=== PATIENT | male | born 1965 | race Caucasian/White ===

== ENCOUNTER 2016-08-10 07:50 | Emergency (ER) | payer BC ==
[2016-08-10 08:12] VITALS: BP 148/91
--- NOTE | 2016-08-10 08:34 | RAD ---
INDICATION: Pain ring finger right hand-no trauma COMPARISON: None TECHNIQUE: AP, lateral, and oblique views were obtained. FINDINGS: The bony structures, joint spaces, and soft tissues are normal for age. IMPRESSION: NEGATIVE EXAMINATION.
--- NOTE | 2016-08-10 10:12 | UC ---
Michael Roberts Matthew, [facility] on 08/10/16 at 0852 . Hand/Wrist HPI - HPI Summary HPI Summary: Nurse's Note: 4th finger complaint x 5 days, patient woke up and the finger "felt stiff". Pain worsens with bending the finger. No known mechanism of injury but patient is concerned, "that my bones might be injured". 8/10 sharp intermittent pain with "bending the finger,". Denies any swelling or bruising in the finger. Note: VItal sign stable, pulse oxygen 93%, 8/10 pain, alcohol, never smoked, ganglion cyst removed on the left In Room Note: A 51 y/o male presents to [facility] with right 4th finger pain for the past 5 days. The pain is rated 8/10 in severity and descried as sharp. The pain worsens with flexion of the finger. 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 He denies swelling, ecchymosis, nausea, vomiting, and diarrhea. The patient last saw his PCP a year and half ago. No hospitalization. He's also c/o of diffuse cysts. - History Of Current Complaint Chief Complaint: UCUpperExtremity Stated Complaint: FINGER COMPLAINT Time Seen by Provider: 08/10/16 08:16 Hx Obtained From: Patient ?: No Mechanism Of Injury: Unknown Onset/Duration: Lasting Days, Still Present Severity Initially: Moderate Severity Currently: Moderate Pain Intensity: 8 Pain Scale Used: 0-10 Numeric Aggravating Factor(s): Flexion Associated Signs And Symptoms: Negative: Swelling, Bruising - Allergies/Home Medications Allergies/Adverse Reactions: Allergies Allergy/AdvReac Type Severity Reaction Status Date / Time Penicillins Allergy Intermediate Rash Verified 02/04/14 08:28 PMH/Surg Hx/FS Hx/Imm Hx Endocrine History Of: Denies: Diabetes, Thyroid Disease Cardiovascular History Of: Denies: Cardiac Disorders, Hypertension, Pacemaker/ICD Respiratory History Of: Denies: COPD, Asthma GI/ History Of: Denies: Gastroesophageal Reflux, Renal Disease Neurological History Of: Denies: CVA, Dementia, Seizures Other History Of: Negative For: Anticoagulant Therapy - Surgical History Surgical History: Yes Surgery Procedure, Year, and Place: T&A. 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 Smoking Status (MU): Never Smoked Tobacco Type: Cigarettes, eCigarettes Have You Smoked in the Last Year: No When Did the Patient Quit Smoking/Using Tobacco: 8 months ago Review of Systems Constitutional: Negative Skin: Negative Eyes: Negative, Diplopia Respiratory: Negative Cardiovascular: Negative Gastrointestinal: Negative Genitourinary: Negative Motor: Negative Neurovascular: Negative Musculoskeletal: Myalgia - right ring finger pain Neurological: Negative Psychological: Negative All Other Systems Reviewed And Are Negative: Yes Physical Exam Triage Information Reviewed: Yes Appearance: Well-Appearing, No Pain Distress, Well-Nourished Vital Signs: Initial Vital Signs Temp 96.5 F 08/10/16 07:59 Pulse 60 08/10/16 07:59 Resp 16 08/10/16 07:59 BP 148/91 08/10/16 07:59 Pulse Ox 93 08/10/16 07:59 Vital Signs Reviewed: Yes Eyes: Positive: Conjunctiva Clear ENT: Positive: Hearing grossly normal. Negative: Muffled/hoarse voice Neck: Positive: Supple, Nontender Respiratory: Positive: Chest non-tender, Lungs clear, Normal breath sounds, No respiratory distress Cardiovascular: Positive: RRR, No Murmur Abdomen Description: Positive: Nontender, Soft Bowel Sounds: Positive: Present Musculoskeletal: Positive: Other: - Full ROM at the right elbow and wrist; No snuffbox tenderness; No obvious inflammation; Flexor digitorum profundas is intact; Flexor digitorum superficialis is intact; MILD TENDERNESS OVER THE METACARPOPHALANGEAL JOINT VOLAR ASPECT IN THE RIGHT RING FINGER; RESTRICTED FLEXION; No arthritis; No signs of infection; no signs of swelling Neurological: Positive: Alert Psychological: Positive: Age Appropriate Behavior Skin Exam: Normal Skin: Negative: rashes Diagnostics - Radiology Hand XR Xray Interpretation: No Acute Changes - IMPRESSION: NEGATIVE EXAMINATION. Radiology Interpretation Completed By: Radiologist Hand/Wrist Course/Dx - Differential Dx/Diagnosis Provider Diagnoses: Overuse syndrome right ring finger Discharge - Discharge Plan Condition: Stable Disposition: HOME Patient Education Materials: Finger Sprain (ED), Tendinitis (ED) Referrals: Luca William DO [Primary Care Provider] - Additional Instructions: WE DISCUSSED: You have soft tissue injury to the 3rd finger of your right hand from overuse. This could be a ligament sprain or a tendonitis. It's a problem with repetitive flexing of the finger. Try nimco taping. Warm moist heat in the morning. Passive movement to keep the joint flexible. Ice after work or for discomfort. Over time this will get better. A simple guide is that if it hurts, don't do it , if at all possible. Recheck at any time for increased pain, redness, swelling or disability. The documentation as recorded by the Michael reed Matthew accurately reflects the service I personally performed and the decisions made by me, Praful Sultana MD.
== END 2016-08-10 10:10 | disposition home or self-care (01) ==
LOC: UCEAST 07:50
DX: M70.841 Other soft tissue disorders related to use, overuse and pressure, right hand (principal); Y93.9 Activity, unspecified; R03.0 Elevated blood-pressure reading, without diagnosis of hypertension; Z88.0 Allergy status to penicillin; Z87.891 Personal history of nicotine dependence
CPT/HCPCS: 99211; G0463

== ENCOUNTER 2017-07-19 10:33 | Emergency (ER) | payer BC ==
[2017-07-19 11:30] LABS: ABS Basophils 0 10^3/ul (0-0.2); ABS Eosinophils 0.1 10^3/ul (0-0.6); ABS Lymphocytes 1.7 10^3/ul (1.0-4.8); ABS Monocytes 0.5 10^3/ul (0-0.8); ABS Neutrophils 2.4 10^3/ul (1.5-7.7); ABS Nucleated RBC 0 10^3/ul; Eosinophil % 2.2 % (0-6); Hematocrit 49 % (42-52); Hemoglobin 16.8 g/dl (14.0-18.0); Lymphocyte % 35.5 % (25-47); Mean Corpuscular HGB Conc 34 g/dl (31-36); Mean Corpuscular Hemoglobin 29 pg (27-31); Mean Corpuscular Volume 84 fL (80-94); Mean Platelet Volume 8 um3 (7.4-10.4); Nucleated Red Blood Cells % 0.5; Platelet Count 263 10^3/ul (150-450); Red Blood Count 5.85 10^6/ul (4.0-5.4); Red Cell Distribution Width 15 % (10.5-15); White Blood Count 4.7 10^3/ul (3.5-10.8)
[2017-07-19 11:41] LABS: Urine Appearance Clear; Urine Blood Negative (Negative); Urine Color Straw; Urine Ketones 1+ (Negative); Urine Protein Negative (Negative); Urine Specific Gravity 1.005 (1.010-1.030); Urine Urobilinogen Negative (Negative)
[2017-07-19 11:45] LABS: INR 0.82 (0.77-1.02)
[2017-07-19 11:48] LABS: EGFR Non-African American 92.1 (>60)
--- NOTE | 2017-07-19 12:17 | RAD ---
INDICATION: Episode of dizziness, partial visual loss and headache 2 days earlier COMPARISON: None. TECHNIQUE: Contiguous axial sections of the brain were obtained from the skull base to the vertex without contrast. FINDINGS: The ventricles, cisterns and sulci are within normal limits. The montalvo-white matter differentiation is adequately maintained and there is no sulcal effacement. No significant focal abnormality or mass effect is present. There is no evidence for intracranial hemorrhage. No significant focal osseous abnormality is present. There is fluid in the dependent portion of the right maxillary sinus. The remaining visualized paranasal sinuses are well-aerated. The mastoid air cells are well aerated bilaterally. IMPRESSION: Right maxillary sinusitis in this otherwise normal-appearing brain CT.
[2017-07-19] MEDS ORDERED: Iohexol 350* (CONTRAST) 500 ML MDV IV ONE (12:55)
--- NOTE | 2017-07-19 13:46 | RAD ---
CPT II: CPT II Codes: 3100F INDICATION: Slurred speech 2 days earlier COMPARISON: Same day noncontrast CT of the brain TECHNIQUE: A CT angiogram of the head and neck was performed with 80 cc of Omnipaque 350. Contiguous axial sections were obtained from the thoracic inlet through the blackfeet of Elise. Images were reconstructed in the sagittal, coronal planes and in a 3-D volume rendered format. The distal cervical internal carotid artery diameter is used as the denominater for stenosis measurement. CTA NECK: The common and internal carotid arteries are patent without hemodynamically significant stenosis. Right: Below the carotid bifurcation the common carotid artery measures 6 mm in diameter. There is very mild partially calcified atherosclerosis at the right carotid bulb and the internal carotid artery measures 6 mm in short axis diameter yielding 0% degree stenosis. Left: Just below the bifurcation the common carotid artery measures 6 mm in diameter. There is no significant atherosclerosis at the left carotid bulb and the left internal carotid artery measures 6 mm in short axis diameter. The right vertebral artery is diminutive relative to the left. At the confluence of the intracranial vertebral arteries below the basilar tip the right vertebral artery becomes extremely diminutive (axial image 172) but appears to remain patent up to the confluence with the basilar artery. CTA of the brain: The internal carotid, anterior and middle cerebral arteries appear are patent without high grade stenosis or occlusion. The vertebral, basilar and posterior cerebral arteries appear patent without high grade stenosis or occlusion. The right posterior communicating artery appears to be absent causing the blackfeet of Elise to be incomplete. No focal luminal filling defect, aneurysm or vascular malformation is seen. NON-ARTERIAL FINDINGS: Mild degenerative changes of the cervical spine include loss of intervertebral disc height. IMPRESSION: Normal CT angiography of the head and neck.
[2017-07-19] MEDS ORDERED: Aspirin EC TAB* 325 MG PO ONE (14:45)
[2017-07-19 15:05] VITALS: BP 144/95
--- NOTE | 2017-07-19 21:06 | ED ---
Chaitanya Roberts Nikita, scribed for Caleb Smalls MD on 07/19/17 at 1059 . Neurological HPI - HPI Summary HPI Summary: This patient is a 52 year old M presenting to ED with a chief complaint of dizziness since 2 days ago in the afternoon. The CC is described as lasting 10 minutes. The patient rates the pain 0/10 in severity. Symptoms aggravated by nothing. Symptoms alleviated by spontaneous resolution. Patient reports light- headedness, partial loss of vision (doesnt remember which eye), DIANE, and slurred speech. Pt denies LOC, numbness, tingling, and weakness in the extremities. - History of Current Complaint Chief Complaint: EDNeurologicalDeficit Stated Complaint: POSSIBLE STROKE-FRIDAY Time Seen by Provider: 07/19/17 10:46 Hx Obtained From: Patient Onset/Duration: Sudden Onset, Started days ago, Resolved Timing: Intermittent Episodes Lasting: - one episode lasting 10 minutes Current Severity: None Pain Intensity: 0 Pain Scale Used: 0-10 Numeric Aggravating: Nothing Alleviating: Spontanious Resolution Associated Signs and Symptoms: Positive: Headache - Patient reports light- headedness, partial loss of vision (doesnt remember which eye), DIANE, and slurred speech. Pt denies LOC, numbness, tingling, and weakness in the extremities. - Allergy/Home Medications Allergies/Adverse Reactions: Allergies Allergy/AdvReac Type Severity Reaction Status Date / Time MS Penicillins [Penicillins] Allergy Intermediate Rash Verified 02/04/14 08:28 PMH/Surg Hx/FS Hx/Imm Hx Endocrine/Hematology History: Denies: Hx Anticoagulant Therapy, Hx Diabetes, Hx Thyroid Disease Cardiovascular History: Denies: Hx Hypertension, Hx Pacemaker/ICD Respiratory History: Reports: Hx Sleep Apnea - evaluation for 01/2014 Denies: Hx Asthma, Hx Chronic Obstructive Pulmonary Disease (COPD) History: Denies: Hx Renal Disease Musculoskeletal History: Reports: Other Musculoskeletal History - jaw pain Sensory History: Reports: Hx Hearing Problem - loud noise exposure w/o ear protection Neurological History: Denies: Hx Dementia, Hx Seizures Psychiatric History: Denies: Hx Substance Abuse - Surgical History Surgery Procedure, Year, and Place: T&A. 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 Positive: Headache, Slurred Speech All Other Systems Reviewed And Are Negative: Yes Physical Exam - Summary Physical Exam Summary: VITAL SIGNS: Reviewed. GENERAL: ~Patient is a well-developed and nourished MALE who is lying comfortable in the stretcher. ~Patient is not in any acute respiratory distress. HEAD AND FACE: No signs of trauma. ~No ecchymosis, hematomas or skull depressions. No sinus tenderness. EYES: PERRLA, EOMI x 2, No injected conjunctiva, no nystagmus. EARS: Hearing grossly intact. Ear canals and tympanic membranes are within normal limits. MOUTH: Oropharynx within normal limits. NECK: Supple, trachea is midline, no adenopathy, no JVD, no carotid bruit, no c- spine tenderness, neck with full ROM. CHEST: Symmetric, no tenderness at palpation LUNGS: Clear to auscultation bilaterally. No wheezing or crackles. CVS: Regular rate and rhythm, S1 and S2 present, no murmurs or gallops appreciated. ABDOMEN: Soft, non-tender. No signs of distention. No rebound no guarding, and no masses palpated. Bowel sounds are normal. EXTREMITIES: FROM in all major joints, no edema, no cyanosis or clubbing. NEURO: Alert and oriented x 3. No acute neurological deficits. Speech is normal and follows commands. SKIN: Dry and warm GCS: 15 Triage Information Reviewed: Yes Vital Signs On Initial Exam: Initial Vitals Temp Pulse Resp BP Pulse Ox 96.8 F 71 17 160/100 99 07/19/17 10:36 07/19/17 10:36 07/19/17 10:36 07/19/17 10:36 07/19/17 10:36 Vital Signs Reviewed: Yes Diagnostics - Vital Signs Vital Signs Temp Pulse Resp BP Pulse Ox 07/19/17 10:36 96.8 F 71 17 160/100 99 - Laboratory Result Diagrams: 07/19/17 11:10 07/19/17 11:10 Lab Statement: Any lab studies that have been ordered have been reviewed, and results considered in the medical decision making process. - CT Brain CT CT Interpretation Completed By: Radiologist - Right maxillary sinusitis in this otherwise normal-appearing brain CT. ED physician has reviewed this radiology report. Head CTA CT Interpretation Completed By: Radiologist - Normal CT angiography of the head and neck. ED physician has reviewed this radiology report. - EKG 1101 Cardiac Rate: NL EKG Rhythm: Sinus Rhythm - 69 bpm EKG Interpretation: No ST elevations Course/Dx - Course Assessment/Plan: This patient is a 52 year old M presenting to ED with a chief complaint of dizziness since 2 days ago in the afternoon. Blood work is without significant abnormalities. Brain CT right maxillary sinusitis in this otherwise normal-appearing brain CT. Discussed with Maverick who recommended a CTA. CTA reveals normal CT angiography of the head and neck. After CTA, Dr. Temple spoke to the patient. After assessment, he requested for the patient to be D/C home with f/u at his office on Friday. The patient is hemodynamically stable, alert and oriented x3. - Differential Dx Differential Diagnoses Neuro: Positive: Transient Ischemic Attack - Diagnoses Provider Diagnoses: TIA (transient ischemic attack) - Physician Notifications Discussed Care Of Patient With: Joon Temple Time Discussed With Above Provider: 12:41 Instructed by Provider To: Other - Consulted Dr. Temple who will see the pt in the ED. Discharge - Discharge Plan Condition: Stable Disposition: HOME Patient Education Materials: Transient Ischemic Attack (ED) Referrals: Joon Temple MD [Medical Doctor] - 3 Days Additional Instructions: RETURN TO THE ED FOR ANY NEW OR WORSENING SYMPTOMS. The documentation as recorded by the Chaitanya reed Nikita accurately reflects the service I personally performed and the decisions made by , Caleb Smalls MD.
--- NOTE | 2017-07-19 21:18 | CONS ---
CC: [facility] NEUROLOGY CONSULTATION: DATE OF CONSULT: 07/19/17 LOCATION: Emergency room. REFERRING PHYSICIAN: Dr. Smalls. CHIEF COMPLAINT: Episode of lightheadedness, visual change, and difficulty speaking. 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 He started to feel very fuzzy and lightheaded "like if I stood up too quick." His vision became blotchy and it was difficult to see. Initially he thought it was perhaps he had looked into a bright work light too much. He sat down and continued to feel "fuzzy" and had distortions of his vision. He thinks it was in both eyes but he is not sure. He decided to call a contract supplier and as he was starting to speak, he realized he could not get out the words he was trying to. He says he knew what he wanted to say, but he could not get the words out. He was able to get some words out and he felt that they were slurred. He continued to try to speak to the supplier for about 3 minutes and realized he was not able to communicate effectively and so signed off. He then spoke with a co-worker who looked at him and realized that something was not right. He was able to speak to the coworker with some difficulty getting words out, but it was better than when he was on the phone and it resolved. After about 10 minutes, he felt back to normal. The visual aspect lasted about 3 minutes. He did not notice any numbness nor weakness of his limbs. His co- worker did not notice any asymmetry of his face. He did not have any headache. He did not seek medical attention, went home and then while reading about symptoms of transient ischemic attacks and discussing things with friends, he decided to come to the emergency room today. He felt well since this past without recurrent episodes. There is no prior history of transient ischemic attack or stroke. He does not see physicians regularly and has not had blood work done in many years. He does recall blood work done over 5 years ago, being told his cholesterol was elevated. Other than that he does not seek medical help other than when he is sick. He did have pneumonia and did see a physician in [facility] in June and was treated with antibiotics. He does not know if he has ever had problems with hypertension or diabetes, but he has never been diagnosed as such. He is a nonsmoker. He does not take any medications on a regular basis including aspirin. FAMILY HISTORY: Notable for hyperlipidemia and strokes in both of his parents. His father of coronary artery disease. SOCIAL HISTORY: He has a son who was recently diagnosed with hyperlipidemia. He does not smoke, but he did smoke a little bit when he was in his 20s. He drinks very little to no alcohol. REVIEW OF SYSTEMS: Negative for headaches, seizures, cardiac, pulmonary, renal , GI, , psychiatric, or endocrine disorders. He has lost weight this past year intentionally. PHYSICAL EXAM: He is well developed and well nourished. Temperature 96.8 temporally, blood pressure 122/77, heart rate in the 70s and sinus on the monitor. Respiratory rate is 20, oxygen saturation 95% on room air. Heart is in a regular rate and rhythm without murmurs. Carotid pulses are symmetrical and there are no cervical bruits. Lungs are clear bilaterally. Distal pulses are present and extremities are warm. There is no pedal edema. On neurologic exam, pupils, fundi, and eye movements are normal. Visual sánchez are full to confrontation. There is no ptosis. Facial musculature is symmetric. Facial sensation to light touch and temperature are symmetric. Palate and tongue appear normal, tongue protrudes in the midline and palate rises symmetrically. There is no dysarthria. Hearing is intact bilaterally. Neck strength is normal. Motor exam reveals normal muscle bulk, tone, and strength proximally and distally in upper and lower extremities. There is no pronator drift. There is no rest, sustention or action tremor. Ytjsbo-or-pais maneuver is normal. Yjrc-xs-kitc maneuver is normal. Finger taps are normal in the hands. Sensory exam in the limbs is intact to vibration and light touch. Also to temperature sensation. Reflexes are intact and symmetric in upper and lower extremities. Plantar responses are flexor bilaterally. Limited gait testing is normal. Romberg sign is absent. He is alert and oriented and a very detailed historian. His attention and concentration seem to wander to different medical topics at times. Fund of knowledge is adequate. His language is fluent. Remote and recent memory are intact. DIAGNOSTIC STUDIES/LAB DATA: Includes a CT scan of the brain which I reviewed the images of and is interpreted as normal. CT angiogram of the brain was obtained and I reviewed those images as well and there is a diminutive right vertebral artery which looks congenital as the left vertebral is quite large. There is no atherosclerotic disease of the cervical or intracranial vasculature. Other laboratory data notable for a normal CBC, INR 0.82, chemistry is notable for normal chemistry profile. Glucose 89. His total cholesterol is quite elevated at 362, LDL at 244, HDL is 66.2. EKG is reviewed and is in sinus rhythm. There is no EKG abnormalities. IMPRESSION: Possible dominant hemisphere transient ischemic attack. The lightheadedness and visual symptoms are fairly nonspecific and sounds like he might have been a bit hypotensive, but the slurred speech and difficulty with word finding sounds to be more focal. Given that it has been over 48 hours, I do not think he necessarily needs to be hospitalized. He would not be able to get an MRI today unless they were called in for emergency purposes any ways. PLAN/RECOMMENDATIONS: I recommend that he take an aspirin a day and he did get his first dose here in the emergency room. We had a long discussion about statins and he was not very eager to start them, I do not think it is urgent and so in spite of my preference that he start a statin today, we will hold off. I will have my office staff start Friday morning arranging for him to obtain an MRI of the brain, echocardiogram, and Holter monitor. Again, I told him to take an aspirin a day and asked him to call [facility] to make an appointment for a physical and also follow up from this emergency room visit. Again, I had a long discussion about statins and he was not convinced and so for now we will hold off on treating that, although I think it is inevitable and must be treated. He was told to return to the hospital if he has any recurrent neurological symptoms. He had questions about return to work and told him to not work Friday and to be available to set up the testing that day. 90 Minutes of ER time was spent with the patient on several visits to examine, obtain history, explain results and provide recommendations, and answer questions. [id number]/[facility] #: [id number] BABITA
== END 2017-07-19 14:51 | disposition home or self-care (01) ==
LOC: ED 10:33
DX: G45.9 Transient cerebral ischemic attack, unspecified (principal); J32.0 Chronic maxillary sinusitis; F17.210 Nicotine dependence, cigarettes, uncomplicated; F17.290 Nicotine dependence, other tobacco product, uncomplicated; Z88.0 Allergy status to penicillin
CPT/HCPCS: 36415; 70450; 70496; 70498; 80053; 80061; 81003; 83605; 84484; 85025; 85610; 93005; 99283; A9270-GY; Q9967